=== PATIENT | male | born 2000 | race Caucasian/White ===

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

== ENCOUNTER 2022-01-01 12:08 | Inpatient (IN) ==
[2022-01-01] MEDS ORDERED: Nicotine GUM 4MG FRUIT FLAVOR PO ONE (14:18)
[2022-01-01 17:01] LABS: ABS Eosinophils 0.3 10^3/ul (0-0.6); ABS Lymphocytes 2.4 10^3/ul (1.0-4.8); ABS Monocytes 0.5 10^3/ul (0-0.8); ABS Neutrophils 5.8 10^3/ul (1.5-7.7); Eosinophil % 3.4 %; Hematocrit 46 % (42-52); Hemoglobin 15.2 g/dL (14.0-18.0); Lymphocyte % 26.2 %; Mean Corpuscular HGB Conc 33 g/dL (31-36); Mean Corpuscular Hemoglobin 30 pg (27-31); Mean Corpuscular Volume 91 fL (80-94); Mean Platelet Volume 8.1 fL (7.4-10.4); Nucleated Red Blood Cells % 0.2; Platelet Count 310 10^3/uL (150-450); Red Blood Count 5.03 10^6 /uL (4.18-5.48); Red Cell Distribution Width 14 % (10-15); White Blood Count 9.1 10^3/uL (3.5-10.8)
[2022-01-01 17:03] LABS: Urine Appearance Clear; Urine Bilirubin Negative (Negative); Urine Blood Negative (Negative); Urine Color Yellow; Urine Glucose Negative (Negative); Urine Ketones Negative (Negative); Urine Nitrite Negative (Negative); Urine Protein Negative (Negative); Urine Specific Gravity 1.027 (1.002-1.030); Urine Urobilinogen Negative (Negative)
[2022-01-01 17:47] LABS: ALT 14 U/L (7-52); AST 19 U/L (13-39); Acetaminophen < 15 mcg/mL; Albumin 5.2 g/dL (3.2-5.2); Albumin/Globulin Ratio 1.7 (1-3); Alcohol, S < 13 mg/dL (<13); Alkaline Phosphatase 80 U/L (35-149); Anion Gap 12 mmol/L (2-11); Blood Urea Nitrogen 8 mg/dL (6-24); CO2 Carbon Dioxide 25 mmol/L (22-32); Calcium 10.5 mg/dL (8.6-10.3); Chloride 104 mmol/L (101-111); Globulin 3.1 g/dL (2-4); Glucose 83 mg/dL (70-100); Potassium 4.1 mmol/L (3.5-5.0); Salicylate < 2.50 mg/dL (<30); Sodium 141 mmol/L (135-145); Total Protein 8.3 g/dL (6.4-8.9); eGFR CKD-EPI 130.7 (>60)
[2022-01-01 17:55] LABS: TSH Ultra Thyroid Stim Horm 3.55 mcIU/mL (0.34-5.60)
[2022-01-01 18:05] LABS: Urine Benzodiazepine Screen None Detected (None Detect); Urine Cannabinoids Screen Presumptive Positive (None Detect); Urine Opiates Screen None Detected (None Detect)
[2022-01-01] MEDS ORDERED: LORazepam 2 mg VIAL 1 ml IM ONE (18:28)
[2022-01-01] MEDS ORDERED: Lorazepam PYXIS KEY PRN (18:28)
[2022-01-01] MEDS ORDERED: Haloperidol 5 mg/ml SDV IV/IM 5 MG/ML AMP IM ONE (18:28)
[2022-01-01] MEDS ORDERED: OLANZapine 10 mg TAB*ODT ONE ×2 (18:57→19:10)
[2022-01-01] MEDS ORDERED: Al Hydrox/Mg Hydrox/Simet LIQ 30 ML UDC PO PRN (19:39)
[2022-01-01] MEDS ORDERED: OLANZapine 10 mg TAB*ODT PO PRN (19:42)
[2022-01-01] MEDS: Nicotine GUM 2MG FRUIT FLAVOR PO PRN (20:20)
[2022-01-02] MEDS ORDERED: Vitamin THERAPEUTIC TAB PO SCH (09:00)
[2022-01-03] MEDS: Nicotine GUM 2MG FRUIT FLAVOR PO PRN ×2 (01:32→20:57)
[2022-01-04] MEDS: Nicotine GUM 2MG FRUIT FLAVOR PO PRN ×4 (01:29→18:40)
[2022-01-05] MEDS: Nicotine GUM 2MG FRUIT FLAVOR PO PRN ×3 (08:49→20:37)
[2022-01-05 11:33] LABS: Urine Alcohol Negative mg/dL (Cutoff: 10); Urine Barbiturates Negative; Urine Benzodiazepines Negative; Urine Cocaine Negative; Urine Methadone Negative (Negative); Urine Opiates Negative (Negative); Urine Phencyclidine Negative ng/mL (Cutoff: 25); Urine Tetrahydrocannabinol Presumptive Positive ng/mL (Cutoff: 50)
[2022-01-05] MEDS ORDERED: chlorproMAZINE 25 MG/ML 2 ML (50 MG) IM ONE (13:04)
[2022-01-05] MEDS ORDERED: chlorproMAZINE 25 MG/ML 2 ML (50 MG) ONE (13:05)
[2022-01-06] MEDS: Nicotine GUM 2MG FRUIT FLAVOR PO PRN ×3 (07:55→17:56)
[2022-01-06] MEDS: Triamcinolone 0.025% OINT 15 GM TUBE TOPICAL PRN (08:32)
[2022-01-07] MEDS: Nicotine GUM 2MG FRUIT FLAVOR PO PRN ×3 (09:44→18:32)
[2022-01-07] MEDS: Triamcinolone 0.025% OINT 15 GM TUBE TOPICAL PRN (22:45)
[2022-01-08] MEDS: Nicotine GUM 2MG FRUIT FLAVOR PO PRN (13:26)
[2022-01-09 04:08] LABS: Urine Carboxy THC Confirm >500.0 ng/mL; Urine THC Interpretation Positive.
[2022-01-09] MEDS ORDERED: Lorazepam PYXIS KEY ONE (10:09)
[2022-01-09] MEDS ORDERED: Haloperidol 5 mg/ml SDV IV/IM 5 MG/ML AMP ONE (10:09)
[2022-01-09] MEDS ORDERED: LORazepam 2 mg VIAL 1 ml ONE (10:10)
[2022-01-09] MEDS ORDERED: chlorproMAZINE 25 MG/ML 2 ML (50 MG) ONE (14:37)
[2022-01-10] MEDS: Nicotine GUM 2MG FRUIT FLAVOR PO PRN ×2 (13:39→21:05)
[2022-01-10] MEDS: Triamcinolone 0.025% OINT 15 GM TUBE TOPICAL PRN (21:05)
[2022-01-12] MEDS: Nicotine GUM 2MG FRUIT FLAVOR PO PRN ×2 (12:50→16:00)
[2022-01-13] MEDS: Nicotine GUM 2MG FRUIT FLAVOR PO PRN (15:23)
[2022-01-14] MEDS: Nicotine GUM 2MG FRUIT FLAVOR PO PRN ×2 (14:11→17:29)
[2022-01-14] MEDS: Triamcinolone 0.025% OINT 15 GM TUBE TOPICAL PRN (17:30)
[2022-01-15 07:52] VITALS: BP 112/66
== END 2022-01-15 18:23 | disposition home or self-care (01) | DRG 776 ==
LOC: ED 12:08 → BSU 19:05
PROVIDERS: ADMIT Psychiatry & Neurology Psychiatry; ATTEND Psychiatry & Neurology Psychiatry

== ENCOUNTER 2022-01-31 21:18 | Inpatient (IN) ==
[2022-01-31 22:59] LABS: Urine Benzodiazepine Screen None Detected (None Detect); Urine Cannabinoids Screen None Detected (None Detect); Urine Opiates Screen None Detected (None Detect)
[2022-02-01] MEDS ORDERED: Al Hydrox/Mg Hydrox/Simet LIQ 30 ML UDC PO PRN (03:08)
[2022-02-01] MEDS: Nicotine GUM 2MG FRUIT FLAVOR PO PRN (09:04)
[2022-02-01] MEDS: Nicotine PATCH 21 MG/24 HR PATCH TRANSDERM SCH (11:03)
[2022-02-01] MEDS: Vitamin THERAPEUTIC TAB PO SCH (11:03)
[2022-02-02] MEDS: Nicotine GUM 2MG FRUIT FLAVOR PO PRN ×3 (04:43→22:43)
[2022-02-02] MEDS: Vitamin THERAPEUTIC TAB PO SCH (09:33)
[2022-02-02] MEDS: Nicotine PATCH 21 MG/24 HR PATCH TRANSDERM SCH (09:33)
[2022-02-03] MEDS: Nicotine GUM 2MG FRUIT FLAVOR PO PRN ×3 (00:47→20:56)
[2022-02-03] MEDS: Vitamin THERAPEUTIC TAB PO SCH (23:40)
[2022-02-03] MEDS: Nicotine PATCH 21 MG/24 HR PATCH TRANSDERM SCH (23:40)
[2022-02-04] MEDS: Nicotine GUM 2MG FRUIT FLAVOR PO PRN ×4 (12:01→22:44)
[2022-02-04] MEDS: Vitamin THERAPEUTIC TAB PO SCH (12:27)
[2022-02-04] MEDS: Nicotine PATCH 21 MG/24 HR PATCH TRANSDERM SCH (12:27)
[2022-02-05] MEDS: Nicotine GUM 2MG FRUIT FLAVOR PO PRN ×3 (03:00→21:37)
[2022-02-05] MEDS: Nicotine PATCH 21 MG/24 HR PATCH TRANSDERM SCH (09:17)
[2022-02-05] MEDS: Vitamin THERAPEUTIC TAB PO SCH (09:17)
[2022-02-06] MEDS: Nicotine PATCH 21 MG/24 HR PATCH TRANSDERM SCH (07:39)
[2022-02-06] MEDS: Vitamin THERAPEUTIC TAB PO SCH (07:39)
[2022-02-06] MEDS: Nicotine GUM 2MG FRUIT FLAVOR PO PRN ×2 (09:33→14:36)
[2022-02-07] MEDS: Vitamin THERAPEUTIC TAB PO SCH (08:59)
[2022-02-07] MEDS: Nicotine PATCH 21 MG/24 HR PATCH TRANSDERM SCH (09:00)
[2022-02-07] MEDS: Nicotine GUM 2MG FRUIT FLAVOR PO PRN ×3 (09:00→22:57)
[2022-02-08] MEDS: Vitamin THERAPEUTIC TAB PO SCH (09:47)
[2022-02-08] MEDS: Nicotine GUM 2MG FRUIT FLAVOR PO PRN ×2 (09:48→19:16)
[2022-02-08] MEDS: Nicotine PATCH 21 MG/24 HR PATCH TRANSDERM SCH (09:49)
[2022-02-08 23:01] VITALS: BP 130/75
[2022-02-09] MEDS: Vitamin THERAPEUTIC TAB PO SCH (09:07)
[2022-02-09] MEDS: Nicotine PATCH 21 MG/24 HR PATCH TRANSDERM SCH (09:07)
== END 2022-02-09 17:35 | disposition home or self-care (01) | DRG 751 ==
LOC: ED 21:18 → EDHOLD 02-01 02:30 → BSU 02-01 05:27
PROVIDERS: ADMIT Psychiatry & Neurology Psychiatry; ATTEND Psychiatry & Neurology Psychiatry

== ENCOUNTER 2022-03-16 00:24 | Inpatient (IN) ==
[2022-03-16 01:48] LABS: Urine Benzodiazepine Screen None Detected (None Detect); Urine Cannabinoids Screen Presumptive Positive (None Detect); Urine Opiates Screen None Detected (None Detect)
[2022-03-16] MEDS ORDERED: Nicotine GUM 2MG FRUIT FLAVOR PO ONE (04:28)
[2022-03-16] MEDS: Nicotine GUM 2MG FRUIT FLAVOR PO PRN ×2 (04:30→13:43)
[2022-03-16] MEDS ORDERED: Al Hydrox/Mg Hydrox/Simet LIQ 30 ML UDC PO PRN (11:01)
[2022-03-17] MEDS: Nicotine GUM 2MG FRUIT FLAVOR PO PRN (23:33)
[2022-03-18] MEDS: Nicotine GUM 2MG FRUIT FLAVOR PO PRN (18:23)
[2022-03-19] MEDS: Nicotine GUM 2MG FRUIT FLAVOR PO PRN (15:32)
[2022-03-20] MEDS: Nicotine GUM 2MG FRUIT FLAVOR PO PRN (15:25)
[2022-03-21 10:40] VITALS: BP 114/73
[2022-03-21] MEDS: Nicotine GUM 2MG FRUIT FLAVOR PO PRN (10:48)
== END 2022-03-21 13:58 | disposition home or self-care (01) | DRG 751 ==
LOC: ED 00:24 → EDHOLD 11:01 → BSU 12:24
PROVIDERS: ADMIT Psychiatry & Neurology Psychiatry; ATTEND Psychiatry & Neurology Psychiatry